=== PATIENT | female | born 2000 | race Caucasian/White ===

== ENCOUNTER → 2021-10-02 16:21 | Outpatient (CLI) | payer BC, SELFPAY | PROVIDERS: Visit Provider Family Medicine | DX: Z23 Encounter for immunization (principal) ==

== ENCOUNTER 2022-02-03 18:22 | Emergency (ER) | payer BC, SELFPAY ==
[2022-02-03 18:23] VITALS: BP 129/71; PULSE 94; RESP 18; TEMP 36.6; O2SAT 98; BMI 29.7
--- NOTE | 2022-02-03 18:35 | CT_ITS ---
STUDY: CT FACIAL BONES WITHOUT CONTRAST REASON FOR EXAM: Female, 22 years old. orbital contusion RADIATION DOSAGE (If Supplied By Facility): CTDIvol = ( 29.38 ) mGy, DLP = ( 576.84 ) mGycm TECHNIQUE: The patient was scanned in a multi detector CT scanner. Sagittal and coronal images were reconstructed. Individualized dose optimization techniques were used for this CT. COMPARISON: None. FINDINGS: Soft tissue swelling and subcutaneous emphysema of the right periorbital soft tissues. No intraorbital air or soft tissue swelling. Normal nasal bones and anterior nasal spine. Nondisplaced fracture of right anterior maxillary sinus is seen on image 35 of series 2. There is slight irregularity of the right orbital floor on image 48 of series 602 and appears contiguous with the anterior maxillary wall fracture (image 40 series 602). Nondisplaced fracture right lamina papyracea seen on image 46 of series 602. No inferior displacement of right orbital contents. The mandible and pterygoid plates are intact. Bilateral kendy bullosa. Small right maxillary sinus air-fluid level. Mucosal thickening and fluid in the right ethmoid air cells. CT/Sinus/Facial Bone IMPRESSION: 1. Right inferior orbital floor fracture without displacement. 2. Right anterior maxillary sinus fracture. 3. Right lamina papyracea fracture. 4. Right periorbital soft tissue swelling with preseptal emphysema. Electronically Signed: Roman Barcenas MD (Bro[place]) at 19:44 EDT Reading Location ID and State: [facility] / [place] , Service support ,
--- NOTE | 2022-02-03 18:44 | EDS_ITS ---
HPI History of Present Illness Chief Complaint: Head Injury Narrative Narrative: Patient presents with injury to her right eye that she sustained a few hours ago. She was playing in a rugby game, and was hit in the face, mainly the right eye with another player's head and knee. She denies any loss of consciousness. She noticed that the area under her right eye was swollen. She denies any loss of vision. She had a slight headache with perhaps a minimal amount of nausea, but took Advil and Tylenol, and that resolved. However, she blew her nose, and experienced swelling underneath her right eye. She denies other injury. She presents because of the swelling underneath her right eye with a minimal amount of pain. She denies any neck pain. No other injury. She does not take blood thinners. PFSH PFSH Medical History no medical history Home Medications hydrocodone-acetaminophen 1 tab PO Q6H PRN 3 Days #12 tab 02/03/22 [Rx Last Taken Unknown] Allergy/AdvReac Type Severity Reaction Status Date / Time No Known Allergies Allergy Verified 02/03/22 18:22 Social History Smoking Status: Never smoker ROS ROS ED ROS Narrative Constitutional: No fever, no chills. HEENT: No sore throat. No neck pain. No loss of vision. No rhinorrhea. Swelling underneath right eye. Cardiovascular: No chest pain. No palpitations. No pedal edema. Respiratory: No cough, no shortness of breath. Abdominal: No abdominal pain. No nausea currently. No vomiting. Genitourinary: No dysuria. No hematuria. Musculoskeletal: No myalgias. No arthralgias. Neurologic: Previous headache-resolved. No dizziness. No lightheadedness. Skin: No rash. No change in color. Psychiatric: No depression. No anxiety. EXAM Physical Exam Narrative Exam Narrative: Afebrile. Vital signs noted. HEENT: Normocephalic. Mild swelling underneath right eye. No facial instability. No crepitance. PERRL, EOMI. Neck soft and supple. No point tenderness or step off. Cardiovascular: Regular rate and rhythm. No murmurs, rubs, or gallops appreciated. Respiratory: No tachypnea. Lungs clear to auscultation bilaterally. Gastrointestinal: Abdomen soft, nontender, with normoactive bowel sounds. No rebound or guarding. Neurological: Awake. Alert. Nonfocal, nonlateralizing. Skin: No rash. Normal color. No pallor. Musculoskeletal: No pedal edema. Full range of motion extremities. Const Vital Signs: 02/03/22 18:23 Temperature 98 F Temperature Source Temporal Pulse Rate 94 Respiratory Rate 18 Blood Pressure 129/71 H Blood Pressure Mean 90 Pulse Ox 98 Oxygen Delivery Method Room Air MDM MDM MDM Narrative Medical decision making narrative: Patient is awake, alert, and oriented. I do not feel CT of the brain is indicated. However, given her high injury and periorbital swelling, I did obtain a CT of the maxillofacial bones because of concern for orbital floor blowout fracture because she blew her nose and experienced swelling. CT of the facial bones shows a right inferior orbital floor fracture without displacement. There is a right anterior maxillary sinus fracture. She also has a right lamina papyracea fracture she does have right periorbital soft tissue swelling with preseptal emphysema. She is resting comfortably. At this point in time, I will discuss the patient with the trauma physician at [facility]. I do feel that she would be able to be discharged home to follow-up with plastic surgery. She will take [id number] medications and apply ice to the affected areas. I did write her prescription for [place] tablets for breakthrough pain. I was able to speak with the ED physician who is responsible for trauma transfers. It was not felt that transfer was indicated as there is no extraocular muscle entrapment. She will follow up with Dr. Charlie Lopez with plastic surgery in [place]. I feel she be discharged safely home with follow-up. Return instructions were reviewed. Disposition is discharged home in stable condition. Radiography Diagnostic Testing: Clinical Impression(s) from Imaging Studies Facial/Sinus 02/03/22 18:35 IMPRESSION: 1. Right inferior orbital floor fracture without displacement. 2. Right anterior maxillary sinus fracture. 3. Right lamina papyracea fracture. 4. Right periorbital soft tissue swelling with preseptal emphysema. Electronically Signed: Roman Barcenas MD ([place]) at 19:44 EDT Reading Location ID and State: [facility] / [place] , Service support , Discharge Plan Triage Chief Complaint: Head Injury ED Provider: George Patel Dx/Rx/DC Orders Clinical Impression: Fracture of orbital floor, Lamina papyracea fracture, Fracture of maxillary sinus Instructions: ED Facial Fracture, ED Head Injury (Adult) Prescriptions: New hydrocodone-acetaminophen 5-325 mg tablet 1 tab PO Q6H PRN (Reason: pain) 3 Days Qty: 12 RF: 0 Primary Care Provider: Care Physician,No Primary Referrals: Care Physician,No Primary [Primary Care Provider] - Activity Restrictions/Additional Instructions: No nose blowing until follow-up with plastics. Follow-up with plastic surgery, Dr. Charlie Lopez. Call his office on Saturday. Disposition Disposition: Home, Self Care
[2022-02-03] MEDS: HYDROcodone Bitartrate/Apap 5/325 Tablet PO (20:20)
== END 2022-02-03 20:11 | disposition home or self-care (01) ==
PROVIDERS: Emergency Provider Emergency Medicine; Visit Provider Emergency Medicine
DX: S02.31XA Fracture of orbital floor, right side, initial encounter for closed fracture (principal); T79.7XXA Traumatic subcutaneous emphysema, initial encounter; S02.40CA Maxillary fracture, right side, initial encounter for closed fracture; S02.19XA Other fracture of base of skull, initial encounter for closed fracture; W22.8XXA Striking against or struck by other objects, initial encounter; Y93.63 Activity, rugby
CPT/HCPCS: 70486; 99282